=== PATIENT | male | born 1960 | race Caucasian/White ===

== ENCOUNTER 2018-02-05 07:44 | Emergency (ER) | payer OTHER ==
--- NOTE | 2018-02-05 08:05 | ER ---
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 One small puncture wound noted to right index finger noted. 07:50 Transition of care: patient was not received from another setting of care. Onset of aa5 symptoms was February 05, 2018. Risk Assessment: Do you want to hurt yourself or someone else? Patient reports no desire to harm self or others. Initial Sepsis Screen: Does the patient meet any 2 criteria? No. Patient's initial sepsis screen is negative. Does the patient have a suspected source of infection? No. Patient's initial sepsis screen is negative. Care prior to arrival: None. 07:50 Method Of Arrival: Ambulatory aa5 07:50 Acuity: NAKIA 4 aa5 Triage Assessment: 07:50 General: Appears comfortable, Behavior is calm, cooperative. aa5 Historical: - Allergies: 07:55 No Known Allergies; aa5 - Home Meds: 07:55 meloxicam oral oral [Active]; aa5 - PMHx: 07:55 Arthritis; aa5 - PSHx: 07:55 L shoulder; Hernia repair; aa5 - Immunization history:: Last tetanus immunization: unknown. - Social history:: Smoking status: Patient uses tobacco products, smokes one pack cigarettes per day. - Family history:: not pertinent. - Ebola Screening: : No symptoms or risks identified at this time. - Hospitalizations: : No recent hospitalization is reported. Screenin:10 Abuse screen: Denies threats or abuse. Nutritional screening: No deficits noted. aa5 Tuberculosis screening: No symptoms or risk factors identified. Fall Risk None identified. Assessment: 07:55 General: Appears comfortable, Behavior is calm, cooperative. Pain: Denies pain. Neuro: aa5 Level of Consciousness is awake, alert, obeys commands, Oriented to person, place, time, situation. Cardiovascular: Heart tones S1 S2 present Rhythm is regular. Respiratory: Airway is patent Respiratory effort is even, unlabored, Respiratory pattern is regular, symmetrical. GI: No signs and/or symptoms were reported involving the gastrointestinal system. : No signs and/or symptoms were reported regarding the genitourinary system. EENT: No signs and/or symptoms were reported regarding the EENT system. Derm: Skin is pink, warm \\T\\ dry. puncture wound noted to right index finger, no bleeding noted. Musculoskeletal: Range of motion: intact in all extremities. 08:11 Reassessment: Rat bite reported to [place], [place] [employer]. PD states they aa5 will send officer to speak to patient. . 08:11 Reassessment: PT reported bite occurred at [address] [place], [place] . aa5 08:20 Reassessment: wound cleaned with Hibiclens and saline per MD. Dressed with neosporin, aa5 non-adherent dressing, and Kerlix per MD. . 08:25 Reassessment: PD at bedside speaking to pt . aa5 08:30 Reassessment: Patient is alert, oriented x 3, equal unlabored respirations, skin aa5 warm/dry/pink. Vital Signs: 07:55 BP 122 / 91; Pulse 84; Resp 16 S; Temp 99.0(TE); Pulse Ox 99% on R/A; Weight 77.11 kg aa5 (R); Height 6 ft. 1 in. (185.42 cm) (R); Pain 0/10; 07:55 Body Mass Index 22.43 (77.11 kg, 185.42 cm) aa5 ED Course: 07:49 Patient arrived in ED. mr 07:49 None, None is Private Physician. mr 07:50 Bronson Elam MD is Attending Physician. rn 07:52 Arm band placed on Patient placed in an exam room, on a stretcher. aa5 07:54 Renee Cantrell, ZEE is Primary Nurse. aa5 07:59 Triage completed. aa5 08:05 Patient has correct armband on for positive identification. Bed in low position. Call aa5 light in reach. Side rails up X 1. 08:30 No provider procedures requiring assistance completed. Patient did not have IV access aa5 during this emergency room visit. Administered Medications: No medications were administered Outcome: 08:04 Discharge ordered by MD. rn 08:30 Discharged to home ambulatory. aa5 08:30 Condition: good 08:30 Discharge instructions given to patient, Instructed on discharge instructions, follow up and referral plans. medication usage, Demonstrated understanding of instructions, follow-up care, medications, Prescriptions given X 1. 08:32 Patient left the ED. aa5 Signatures: Stacy Sanchez Roman, MD MD rn Calderon, Audri, RN RN joshua
--- NOTE | 2018-02-05 08:05 | EDPHYS ---
Physician Documentation [facility] Name: Carter Anton Age: 57 yrs Sex: Male : 1960 Arrival Date: 02/05/2018 Time: 07:49 Bed 13 Private MD: None, None ED Physician Bronson Elam HPI: 02/05 07:59 This 57 yrs old Male presents to ER via Ambulatory with complaints of Rat rn Bite. 07:59 The patient was bitten on the right hand, by a rat. rn 08:01 Onset: The symptoms/episode began/occurred yesterday. Animal information: rn Patient/Caregiver unable to provide information related to the animal. Severity of symptoms: At their worst the symptoms were mild, in the emergency department the symptoms are unchanged. The patient has not experienced similar symptoms in the past. Reports rat bite to right 2nd digit last night, no complication, "just got the skin", no fever, no skin changes. . Historical: - Allergies: 07:55 No Known Allergies; aa5 - Home Meds: 07:55 meloxicam oral oral [Active]; aa5 - PMHx: 07:55 Arthritis; aa5 - PSHx: 07:55 L shoulder; Hernia repair; aa5 - Immunization history:: Last tetanus immunization: unknown. - Social history:: Smoking status: Patient uses tobacco products, smokes one pack cigarettes per day. - Family history:: not pertinent. - Ebola Screening: : No symptoms or risks identified at this time. - Hospitalizations: : No recent hospitalization is reported. ROS: 08:01 Constitutional: Negative for fever, chills, and weight loss, MS/Extremity: + rate bite rn Exam: 08:01 Constitutional: This is a well developed, well nourished patient who is awake, alert, rn and in no acute distress. MS/ Extremity: Pulses equal, no cyanosis. Neurovascular intact. Full, normal range of motion. Equal circumference. 2 small very superficial abrasions to dorsum of right 2nd digit. Vital Signs: 07:55 BP 122 / 91; Pulse 84; Resp 16 S; Temp 99.0(TE); Pulse Ox 99% on R/A; Weight 77.11 kg aa5 (R); Height 6 ft. 1 in. (185.42 cm) (R); Pain 0/10; 07:55 Body Mass Index 22.43 (77.11 kg, 185.42 cm) aa5 MDM: 07:50 Patient medically screened. rn 08:01 Differential diagnosis: superficial laceration. Data reviewed: vital signs, nurses rn notes, and as a result, I will discharge patient. Counseling: I had a detailed discussion with the patient and/or guardian regarding: the historical points, exam findings, and any diagnostic results supporting the discharge/admit diagnosis, the need for outpatient follow up, to return to the emergency department if symptoms worsen or persist or if there are any questions or concerns that arise at home. Special discussion: I discussed with the patient/guardian in detail that at this point there is no indication for admission to the hospital. It is understood, however, that if the symptoms persist or worsen the patient needs to return immediately for re-evaluation. Administered Medications: No medications were administered Disposition: 02/05/18 08:04 Discharged to Home. Impression: Bitten by rat. - Condition is Stable. - Discharge Instructions: Animal Bite. - Prescriptions for Augmentin 875- 125 mg Oral Tablet - take 1 tablet by ORAL route every 12 hours for 10 days; 20 tablet. - Medication Reconciliation Form, Thank You Letter, Antibiotic Education, Prescription Opioid Use form. - Follow up: Private Physician; When: As needed; Reason: Recheck today's complaints, Re-evaluation by your physician. - Problem is new. - Symptoms have improved. Signatures: Bronson Elam MD MD rn Calderon, Audri, RN RN aa5 Corrections: (The following items were deleted from the chart) 08:32 08:04 02/05/2018 08:04 Discharged to Home. Impression: Bitten by rat. Condition is aa5 Stable. Forms are Medication Reconciliation Form, Thank You Letter, Antibiotic Education, Prescription Opioid Use. Follow up: Private Physician; When: As needed; Reason: Recheck today's complaints, Re-evaluation by your physician. Problem is new. Symptoms have improved. rn
== END 2018-02-05 08:32 | disposition home or self-care (01) ==
LOC: ER 07:44
DX: S61.250A Open bite of right index finger without damage to nail, initial encounter (principal); F17.210 Nicotine dependence, cigarettes, uncomplicated
CPT/HCPCS: 99282